=== PATIENT | male | born 1970 | race Caucasian/White ===

== ENCOUNTER 2016-12-02 08:40 | Emergency (ER) | payer OTHER ==
[~2016-12-02] VITALS: Ht 162.6 cm; Wt 62.6 kg
[2016-12-02 08:56] VITALS: BP 116/79
--- NOTE | 2016-12-02 08:56 | NUR ---
Patient ambulated to bed 04.
--- NOTE | 2016-12-02 08:58 | NUR ---
PATIENT PRESENTS TO ED DUE TO LACERATION ON RIGHT FOREARM , CUT BY SHEET METAL.DENIES N/V/D; SKIN IS PINK/WARM/DRY; AAOX4 WITH EVEN AND STEADY GAIT; LUNGS CLEAR BL; HR EVEN AND REGULAR; PT DENIES ANY FEVER, CP, SOB, OR COUGH AT THIS TIME; PATIENT STATES PAIN OF 6/10 AT THIS TIME; PATIENT POSITIONED FOR COMFORT; HOB ELEVATED; BEDRAILS UP X2; BED DOWN. ER MD MADE AWARE OF PT STATUS.
--- NOTE | 2016-12-02 09:12 | NUR ---
DR. HUNT AT BEDSIDE
[2016-12-02] MEDS ORDERED: LIDOCAINE 1% 500 MG/50 ML VIAL INJ ONE (09:30)
--- NOTE | 2016-12-02 09:38 | NUR ---
DR. HUNT AT BEDSIDE SUTURING RIGHT ARM
[2016-12-02] MEDS ORDERED: BACITRACIN OINT 500 UNITS/GM PKT TP ONE ×2 (09:45)
[2016-12-02 09:50] VITALS: BP 118/88
--- NOTE | 2016-12-02 09:50 | NUR ---
Patient discharged with v/s stable. Written and verbal after care instructions given and explained. Patient alert, oriented and verbalized understanding of instructions. Ambulatory with steady gait. All questions addressed prior to discharge. ID band removed. Patient advised to follow up with PMD. Rx of MOTRIN AND BACTRIM DS given. Patient educated on indication of medication including possible reaction and side effects. Opportunity to ask questions provided and answered.
== END 2016-12-02 09:50 | disposition home or self-care (01) ==
LOC: MED 08:58
DX: S51.811A Laceration without foreign body of right forearm, initial encounter (principal); Z88.0 Allergy status to penicillin; W45.8XXA Other foreign body or object entering through skin, initial encounter; Y93.89 Activity, other specified; Y92.89 Other specified places as the place of occurrence of the external cause; Y99.8 Other external cause status
CPT/HCPCS: 12001; 90471; 90715; 99283; J2001